=== PATIENT | female | born 1940 | race African-American/Black ===

== ENCOUNTER 2018-06-22 18:13 | Emergency (ER) | payer OTHER ==
[~2018-06-22] VITALS: Ht 160 cm; Wt 65.0 kg
[2018-06-22] MEDS ORDERED: SODIUM CHLORIDE 0.9% 1000ML BAG (SEPSIS BOLUS) IV ONE (18:45)
[2018-06-22 19:24] LABS: HEMATOCRIT. 33.3 % (36.0-48.0); HEMOGLOBIN. 10.9 g/dL (12.0-16.0); MEAN CORPUSCULAR HEMOGLOBIN 29.9 pg (28.0-32.0); MEAN CORPUSCULAR VOLUME 91.4 fL (81.0-99.0); MEAN PLATELET VOLUME 8.1 fl (7.4-10.4); PLATELET 475 x1000/uL (130-400); RED BLOOD CELL COUNT 3.64 mill/uL (4.2-5.4); RED CELL DISTRIBUTION WIDTH 13.9 % (11.6-14.6)
[2018-06-22 19:28] LABS: CHLORIDE 105 mEq/L (98-107)
[2018-06-22 19:32] LABS: ETHANOL BLOOD < 10 mg/dL; PROTHROMBIN TIME 10.9 sec (9.4-11.6)
[2018-06-22 19:47] LABS: PLATELET ESTIMATE INCREASED
[2018-06-22] MEDS ORDERED: POTASSIUM CHLORIDE INJ 40 MEQ in DEXT 5% WATER 250 ML IV ONE ×4 (20:00)
[2018-06-22] MEDS ORDERED: AZITHROMYCIN 500 MG in DEXT 5% WATER 250 ML IV SCH (21:15)
[2018-06-22] MEDS ORDERED: IOHEXOL-350 100 ML BOTTLE ONE (21:23)
[2018-06-22] MEDS ORDERED: LEVOFLOXACIN 750MG PREMIX 150 ML IV ONE (21:30)
[2018-06-22] MEDS ORDERED: MAGNESIUM 2 G PREMIX 50 ML IV ONE (22:45)
[2018-06-23] MEDS ORDERED: ACETAMINOPHEN 325MG TABLET PO ONE
[2018-06-23 00:49] VITALS: BP 155/86
[2018-06-23] MEDS ORDERED: POTASSIUM CHLORIDE 20MEQ/PACKET PO ONE (01:00)
[2018-06-23 01:11] LABS: *AMPHETAMINES SCREEN URINE NEGATIVE (NEGATIVE); *BARBITURATES SCREEN URINE NEGATIVE (NEGATIVE); *BENZODIAZEPINES SCREEN URINE NEGATIVE (NEGATIVE); *COCAINE SCREEN URINE NEGATIVE (NEGATIVE)
[2018-06-23 01:12] LABS: CANNABINOID URINE SCREEN NEGATIVE (NEGATIVE); METHADONE URINE SCREEN NEGATIVE (NEGATIVE); OPIATES URINE SCREEN NEGATIVE (NEGATIVE); PHENCYCLIDINE URINE SCREEN NEGATIVE (NEGATIVE)
[2018-06-23 01:14] LABS: CLARITY URINE CLEAR (CLEAR); COLOR URINE YELLOW (YELLOW); KETONES URINE NEGATIVE (NEGATIVE); PH URINE 5.5 (4.5-8.0); PROTEIN URINE NEGATIVE (NEGATIVE); SPECIFIC GRAVITY URINE 1.015 (1.005-1.030)
[2018-06-23 01:15] LABS: LEUKOCYTE ESTERASE URINE TRACE (NEGATIVE); NITRITE URINE POSITIVE (NEGATIVE); OCCULT BLOOD URINE TRACE (NEGATIVE); UROBILINOGEN URINE 0.2 E.U./dL (0.2-1.0)
== END 2018-06-23 01:56 | disposition short-term general hospital (02) ==
LOC: EDBD 18:13 → ER 18:13 → CANBEDREQ 06-23 02:05
DX: R55 Syncope and collapse (principal); J18.9 Pneumonia, unspecified organism; E11.9 Type 2 diabetes mellitus without complications; N39.0 Urinary tract infection, site not specified; I10 Essential (primary) hypertension; E87.6 Hypokalemia; E83.42 Hypomagnesemia; Z85.3 Personal history of malignant neoplasm of breast; Z88.0 Allergy status to penicillin
CPT/HCPCS: 36415; 70450; 71045; 71275; 73030; 73080; 73502; 80053; 80305; 81003; 82962; 83605; 83735; 83880; 84484; 85025; 85610; 87040; 87077; 87086; 87186; 93005; 96361; 96365; 96366; 96368; 99285; G0482; J0456; J1956; J3480; J7030; J7040; Q9967; J7060

== ENCOUNTER 2025-06-21 22:03 | Emergency (ER) | payer OTHER ==
[~2025-06-21] VITALS: Ht 162.6 cm; Wt 57.0 kg
[2025-06-21 22:15] VITALS: O2SAT 97
[2025-06-21] MEDS: TETANUS, DIPHTHERIA, PERTUSSIS VAC/PF 0.5ML (>10YR OLD) IM ONE (23:00)
[2025-06-21] MEDS: LIDOCAINE HCL 1% 20ML VIAL INFIL ONE (23:00)
[2025-06-21 23:06] LABS: HEMATOCRIT. 34.2 % (36.0-48.0); HEMOGLOBIN. 11.4 g/dL (12.0-16.0); MEAN PLATELET VOLUME 7.3 fl (7.4-10.4); PLATELET 504 x1000/uL (130-400); RED BLOOD CELL COUNT 3.80 mill/uL (4.2-5.4); RED CELL DISTRIBUTION WIDTH 14.2 % (11.6-14.6)
[2025-06-21 23:12] LABS: CREATININE 1.2 mg/dL (0.6-1.0); UREA NITROGEN BLOOD 24 mg/dL (9-23)
[2025-06-21 23:20] LABS: TROPONIN I HIGH SENSITIVITY 56 ng/L (3.0-34)
[2025-06-21 23:30] VITALS: TEMP 36.7
[2025-06-21 23:34] LABS: LYMPHOCYTES % MANUAL 8.0 % (20.0-60.0); MONOCYTES % MANUAL 7.0 % (2.0-8.0); NEUTROPHILS % MANUAL 85.0 % (45.0-75.0); PLATELET ESTIMATE INCREASED
[2025-06-22 01:23] LABS: TROPONIN I HIGH SENSITIVITY 113 ng/L (3.0-34)
[2025-06-22 01:27] VITALS: BP 148/73; PULSE 94; RESP 19; O2SAT 99
== END 2025-06-22 01:20 | disposition home or self-care (01) ==
LOC: ER 22:03 → EDBEDREQ 06-22 04:02 → EDBEDREQTM 06-22 04:02 → EDBEDREQDT 06-22 04:02 → CANRESERV 06-22 04:24 → ENRESERV 06-22 04:24 → CANBEDREQ 06-22 07:41
DX: S01.81XA Laceration without foreign body of other part of head, initial encounter (principal); S06.5XAA Traumatic subdural hemorrhage with loss of consciousness status unknown, initial encounter; E11.9 Type 2 diabetes mellitus without complications; I10 Essential (primary) hypertension; Z88.0 Allergy status to penicillin; X58.XXXA Exposure to other specified factors, initial encounter; Y93.89 Activity, other specified; Y92.89 Other specified places as the place of occurrence of the external cause; Y99.8 Other external cause status
CPT/HCPCS: 36415; 71045; 80048; 84484; 85025; 93005; 99291